=== PATIENT | female | born 1960 | race Caucasian/White ===

== ENCOUNTER → 2024-05-20 12:45 | Outpatient (REF) | payer BC, SELFPAY | LOC: RAD 12:45 | PROVIDERS: ATTENDING PHYSICIAN Internal Medicine Critical Care Medicine; FAMILY PHYSICIAN Internal Medicine | DX: I77.810 Thoracic aortic ectasia (principal) | CPT/HCPCS: 71275; Q9967 ==

== ENCOUNTER → 2024-05-21 12:55 | Outpatient (REF) | payer BC, SELFPAY | LOC: HWEVLT 12:55 | PROVIDERS: ATTENDING PHYSICIAN Radiology Vascular & Interventional Radiology | DX: I83.893 Varicose veins of bilateral lower extremities with other complications (principal) | CPT/HCPCS: 93970 ==

== ENCOUNTER → 2024-05-22 07:51 | Outpatient (REF) | payer BC, SELFPAY | LOC: RAD 07:51 | PROVIDERS: ATTENDING PHYSICIAN Internal Medicine | DX: I77.810 Thoracic aortic ectasia (principal); Z87.891 Personal history of nicotine dependence | CPT/HCPCS: 76770 ==